=== PATIENT | female | born 1960 | race Caucasian/White ===

== ENCOUNTER 2022-04-08 23:02 | Emergency (ER) | payer OTHER ==
[2022-04-08 23:10] VITALS: BP 149/74; PULSE 93; RESP 16; TEMP 98.3; BMI 24.7
[2022-04-08] MEDS ORDERED: DIPHTH,PERTUSS(ACELL),TET 0.5 ML DISP.SYRIN IM ONE ×2 (23:31→23:34)
[2022-04-08] MEDS ORDERED: CEPHALEXIN MONOHYDRATE 500 MG CAPSULE (UD) PO ONE (23:31)
[2022-04-08] MEDS ORDERED: ACETAMINOPHEN 325 MG TABLET (FP) PO ONE (23:31)
[2022-04-08] MEDS ORDERED: CEPHALEXIN MONOHYDRATE 500 MG CAPSULE (UD) ONE (23:34)
[2022-04-08] MEDS ORDERED: ACETAMINOPHEN 325 MG TABLET (FP) ONE (23:34)
== END 2022-04-09 00:01 | disposition home or self-care (01) ==
LOC: FER 23:02
PROC: 3E0234Z Introduction of Serum, Toxoid and Vaccine into Muscle, Percutaneous Approach (ICD-10-PCS; principal; 2022-04-08)
DX: S81.811A Laceration without foreign body, right lower leg, initial encounter (principal); S41.111A Laceration without foreign body of right upper arm, initial encounter; S41.112A Laceration without foreign body of left upper arm, initial encounter; W10.8XXA Fall (on) (from) other stairs and steps, initial encounter
CPT/HCPCS: 90715; 99283-25

== ENCOUNTER 2024-05-28 07:28 | Day surgery (SDC) | payer OTHER ==
[2024-04-28 16:00] VITALS: BMI 25.7
[2024-05-28 09:37] VITALS: RESP 18; TEMP 98
[2024-05-28 10:01] VITALS: BP 120/79; PULSE 67
== END 2024-05-28 10:30 | disposition home or self-care (01) ==
LOC: FASU-ENDO 07:28
PROVIDERS: ATTEND Internal Medicine Gastroenterology
PROC: 3E0H8KZ Introduction of Other Diagnostic Substance into Lower GI, Via Natural or Artificial Opening Endoscopic (ICD-10-PCS; 2024-05-28)
PROC: 0DBN8ZX Excision of Sigmoid Colon, Via Natural or Artificial Opening Endoscopic, Diagnostic (ICD-10-PCS; principal; 2024-05-28 09:05)
DX: Z12.11 Encounter for screening for malignant neoplasm of colon (principal); D12.5 Benign neoplasm of sigmoid colon
CPT/HCPCS: 88305-TC